=== PATIENT | female | born 1965 | race Caucasian/White ===

== ENCOUNTER → 2017-11-10 | Outpatient (CLI) | payer BC | LOC: M.RAD 11-06 08:10 | DX: Z12.31 Encounter for screening mammogram for malignant neoplasm of breast (principal); Z13.820 Encounter for screening for osteoporosis; E28.8 Other ovarian dysfunction; Z90.710 Acquired absence of both cervix and uterus; Z78.0 Asymptomatic menopausal state ==

== ENCOUNTER → 2017-11-27 | Outpatient (CLI) | payer BC ==
--- NOTE | 2017-11-27 17:47 | CARDNUC ---
[place] [address] CARDIAC NUCLEAR IMAGING REPORT Name: LEWIS RED Room: [facility]#: [id number] Admission: 11/27/17 Attend Phys: Vincent Smith, Discharge: Date of : 61 Date of Service: 11/27/17 1746 Report #: [id number] THIS REPORT FOR: //name// APPROVED REPORT Exam: Nuclear Stress Test Indication: Chest pain Patient Location: Out-Patient Stress Tech: Celestina Ferrer Stress Nurse: SPEEDY Jones Tech:OLESYA Pitts Ht: 5 ft 2 in Wt: 167 lbs BSA: 1.77 m2 BMI: 30.54 Medical History Medical History: hyperlipidemia, hypertension Medications: asa, lisinopril Allergies: nkda Cardiac Risk Factors: hyperlipidemia, hypertenison smoking, family hx Previous Cardiac Procedures: none Exercise History: Indeterminate Stress Test Details Stress Test: Exercise stress converted to pharmacologic stress due to failure to obtain a diagnostic stress test. Reason for pharmacologic stress test: physical limitation. HR Resting HR: 72 bpm Max Heart Rate (APMHR): 166 bpm Max HR Achieved: 126 bpm Target HR (85% APMHR): 141 bpm % of APMHR: 75 Recovery HR: 88 bpm BP Resting BP: 161/87 mmHg Max BP: 200/105 mmHg ECG Resting ECG: Sinus Rhythm, normal EKG Stress ECG: Sinus Rhythm, normal EKG ST Change: None Arrhythmia: None Recovery ECG: Sinus Rhythm, normal [place] [address] CARDIAC NUCLEAR IMAGING REPORT Name: LEWIS RED Room: [facility]#: [id number] Admission: 11/27/17 Attend Phys: Vincent Smith, Discharge: Date of : 61 Date of Service: 11/27/17 1746 Report #: [id number] Change: None Recovery Arrhythmia: None Clinical Reason for Termination: Completed protocol, Fatigue Exercise duration: 6 min 2 sec Exercise capacity: 4.85 METs Overall Exercise Capacity for Age: reduced Functional Aerobic Impairment 75% The patient had no significant chest discomfort with Lexiscan infusion. Nurse Comments pt unable to complete treadmill stress. co leg pain. swithced to lexiscan Stress ECG Conclusion The baseline 12-lead electrocardiogram shows normal sinus rhythm with no significant ST or T wave abnormality. EKGs obtained during and post walking Lexiscan infusion showed sinus rhythm and sinus tachycardia with no significant ST or T wave changes when compared to baseline. NM EXAM: Myocardial Perfusion REST/STRESS Imaging Protocol: Rest Tc-99m/Stress Tc-99m 1 day Resting Data Rest SPECT myocardial perfusion imaging was performed in supine position 30 minutes following the intravenous injection of 11.3 mCi of Tc-99m Sestamibi. Time of rest injection: 0855 Time of rest imagin The images were gated to evaluate regional wall motion and calculate left ventricular ejection fraction. Administration Route: IV Pharmacologic Stress Pharmacologic stress test was performed by injecting Regadenoson 0.4 mg IV push followed by the intravenous injection of 31.8 mCi of Tc-99m Sestamibi. Time of stress injection: 1035 Time of stress imagin Administration Route: IV Gated Stress SPECT was performed 40 minutes after stress injection. The images were gated to evaluate regional [place] [address] CARDIAC NUCLEAR IMAGING REPORT Name: LEWIS RED Room: [facility]#: [id number] Admission: 11/27/17 Attend Phys: Vincent Smith, Discharge: Date of : 61 Date of Service: 11/27/17 1746 Report #: [id number] left ventricular ejection fraction. Prone imaging was performed. Study Quality Study: Good Artifact: No artifact Study Data At rest, the left ventricular ejection fraction was 75%.. Post stress, the left ventricular ejection was 75%.. TID = 0.90. Perfusion Normal left ventricular perfusion. Wall Motion Normal left ventricular wall motion. Nuclear Conclusion ECG Findings: negative for ischemia Clinical Findings: negative for ischemia Nuclear Findings: negative for ischemia Exercise Capacity: not assessed Left Ventricular Function: normal Risk Study: low Myocardial perfusion images at rest and post Lexiscan stress show uniform uptake of the radioisotope throughout the myocardium. There were no defects to suggest infarct or ischemia. Left ventricular systolic function was normal on gated studies. This is a low risk study. <Conclusion> The baseline 12-lead electrocardiogram shows normal sinus rhythm with no significant ST or T wave abnormality. EKGs obtained during and post walking Lexiscan infusion showed sinus rhythm and sinus tachycardia with no significant ST or T wave changes when compared to baseline. <ELECTRONICALLY SIGNED> By: Praneeth Hargrove MD, FACC 11/27/17 1746 1746 1746 Praneeth Hargrove MD, FACC /INF
== END ==
LOC: M.NUC 11-18 08:24
DX: I25.110 Atherosclerotic heart disease of native coronary artery with unstable angina pectoris (principal); I10 Essential (primary) hypertension; E78.5 Hyperlipidemia, unspecified

== ENCOUNTER → 2019-01-06 | Outpatient (CLI) | payer OTHER | LOC: M.CT 13:39 | DX: Z13.6 Encounter for screening for cardiovascular disorders (principal) ==